=== PATIENT | male | born 1975 | race Hispanic/Latino ===

== ENCOUNTER 2020-05-01 12:29 | Emergency (ER) | payer SELFPAY ==
[2020-05-01 12:52] LABS: Bilirubin Negative (Negative); Blood, Urine Trace (Negative); Clarity Clear (Clear); Glucose, Urine (Dipstick) 100 mg/dL (Negative); Ketone, Urine Negative (Negative); Leukocyte Trace (Negative); Nitrite Negative (Negative); Protein, Urine (Dipstick) Negative (Neg-Trace); Specific Gravity, Urine 1.025 (1.005-1.030); Urobilinogen 0.2 mg/dL (Less than 2)
[2020-05-01 12:59] LABS: Bacteria/HPF Rare-Few HPF (None Seen); RBC/HPF 0-3 HPF (0-3); Squamous Epithelial 0-3 HPF (0-3)
== END 2020-05-01 13:15 | disposition home or self-care (01) ==
LOC: MADERS 12:29
DX: N30.01 Acute cystitis with hematuria (principal)
CPT/HCPCS: 81003; 81015; 99284

== ENCOUNTER 2024-01-10 15:32 | Emergency (ER) | payer SELFPAY ==
[2024-01-10 16:48] LABS: Bacteria/HPF 1+ HPF (None Seen); Bilirubin Negative (Negative); Blood, Urine Negative (Negative); CAUTI Indications for Culture Dysuria,urgency,freq; Clarity Hazy (Clear); Glucose, Urine (Dipstick) Negative (Negative); Ketone, Urine Negative (Negative); Leukocyte Negative (Negative); Nitrite Negative (Negative); Protein, Urine (Dipstick) Negative (Neg-Trace); RBC/HPF 0-3 HPF (0-3); Squamous Epithelial 0-3 HPF (0-3); WBC/HPF 0-3 HPF (0-3)
[2024-01-10 16:49] LABS: Urine Culture Reflex No No
[2024-01-10] MEDS ORDERED: Doxycycline 100 MG CAP ONE (16:58)
== END 2024-01-10 17:18 | disposition home or self-care (01) ==
LOC: MADERS 15:32
DX: R30.0 Dysuria (principal)
CPT/HCPCS: 36416; 81001; 87491; 87591; 99284